=== PATIENT | female | born 1935 | race Caucasian/White ===

== ENCOUNTER 2016-10-07 19:01 | Inpatient (IN) | payer MEDICARE, OTHER ==
[~2016-10-07] VITALS: Ht 157.5 cm; Wt 75.0 kg
--- NOTE | 2016-10-07 19:32 | PD ---
HPI Chief Complaint: elbow pain Time Seen by Provider: 19:30 Travel History International Travel<30 days: No Contact w/Intl Traveler<30days: No History of Present Illness HPI This is an 81-year-old female who presents to the emergency department having sustained a mechanical fall while she was walking on the sidewalk. Patient landed on her right arm and hit her head. She is reporting severe pain in her right elbow, constant, worse with movement radiating into the right shoulder. She denies any numbness or weakness. She did hit her head but she doesn't remember losing consciousness. She can't really tell if she has any neck pain. She denies any chest pain or trouble breathing. She is not on any blood thinners. PFSH Past Medical History Narrative Medical partial colectomy due to colon cancer with chronic diarrhea hx thyroidectomy Social History Narrative Social History lives in [place] Tobacco Use: No Allergies-Medications (Allergen,Severity, Reaction): Coded Allergies: Tetanus Toxoid (Verified Allergy, Severe, Anaphylaxis, 10/07/16) Reported Meds & Prescriptions Reported Meds & Active Scripts Active Reported Lomotil (Diphenoxylate-Atropine) 2.5-0.025 Mg Tab 1 Tab PO Q6H PRN Review of Systems Except as stated in HPI: all other systems reviewed are Neg Physical Exam Narrative GENERAL:Well appearing, no acute distress SKIN: Focused skin assessment warm and dry. HEAD: Atraumatic. Normocephalic. EYES: Right periorbital ecchymoses, pupils are 3 mm, equal and reactive ENT: Moist mucous membranes NECK: Trachea midline. No cervical spine tenderness, distracting injury present CARDIOVASCULAR: Regular rate and rhythm. No murmur appreciated. RESPIRATORY: Clear to auscultation. Breath sounds equal bilaterally. GASTROINTESTINAL: Abdomen soft, non-tender, nondistended. MUSCULOSKELETAL: No obvious deformities. NEUROLOGICAL: Awake and alert. No obvious cranial nerve deficits. No dysarthria or aphasia. No upper or lower extremity drift. No upper extremity ataxia. Visual graham intact. PSYCHIATRIC: Appropriate mood and affect; insight and judgment normal. Data Data Last Documented VS Vital Signs Date Time Temp Pulse Resp B/P Pulse Ox O2 Delivery O2 Flow Rate FiO2 10/07/16 22:45 76 18 128/64 99 Nasal Cannula 2 10/07/16 19:33 98.9 Orders Complete Blood Count With Diff (10/07/16 19:30) Comprehensive Metabolic Panel (10/07/16 19:30) ^ Insert Iv (10/07/16 19:30) Ct Brain W/O Iv Contrast(Rout) (10/07/16 ) Ct Cerv Spine W/O Contrast (10/07/16 ) Shoulder, Limited(2vws) (10/07/16 19:56) Humerus, One View (10/07/16 ) Elbow, Limited (Ap&Lat) (10/07/16 19:56) Propofol 200 Mg/20 Ml Inj (Diprivan 200 (10/07/16 21:00) Hydromorphone Pf Inj (Dilaudid Pf Inj) (10/07/16 21:30) Elbow, Limited (Ap&Lat) (10/07/16 ) Hydromorphone Pf Inj (Dilaudid Pf Inj) (10/07/16 21:45) Chest, Single Ap (10/07/16 ) Hydromorphone Pf Inj (Dilaudid Pf Inj) (10/07/16 22:15) Electrocardiogram (10/07/16 ) Urinalysis - C+S If Indicated (10/07/16 22:33) Prothrombin Time / Inr (Pt) (10/07/16 22:33) Act Partial Throm Time (Ptt) (10/07/16 22:33) Sling Cradle Arm (10/07/16 ) Fiberglass Splint Elbow Adult (10/07/16 ) Admit Order (Ed Use Only) (10/07/16 22:59) Consult Orthopedic (10/07/16 ) Labs Laboratory Tests Test 10/07/16 10/07/16 19:50 22:45 White Blood Count 12.0 TH/MM3 Red Blood Count 4.56 MIL/MM3 Hemoglobin 14.5 GM/DL Hematocrit 42.5 % Mean Corpuscular Volume 93.2 FL Mean Corpuscular Hemoglobin 31.7 PG Mean Corpuscular Hemoglobin 34.0 % Concent Red Cell Distribution Width 13.4 % Platelet Count 195 TH/MM3 Mean Platelet Volume 8.4 FL Neutrophils (%) (Auto) 65.9 % Lymphocytes (%) (Auto) 22.8 % Monocytes (%) (Auto) 9.1 % Eosinophils (%) (Auto) 1.6 % Basophils (%) (Auto) 0.6 % Neutrophils # (Auto) 7.9 TH/MM3 Lymphocytes # (Auto) 2.7 TH/MM3 Monocytes # (Auto) 1.1 TH/MM3 Eosinophils # (Auto) 0.2 TH/MM3 Basophils # (Auto) 0.1 TH/MM3 CBC Comment AUTO DIFF Differential Comment AUTO DIFF CONFIRMED Platelet Estimate NORMAL Platelet Morphology Comment NORMAL Red Cell Morphology Comment NORMAL Sodium Level 141 MEQ/L Potassium Level 3.5 MEQ/L Chloride Level 109 MEQ/L Carbon Dioxide Level 24.3 MEQ/L Anion Gap 8 MEQ/L Blood Urea Nitrogen 10 MG/DL Creatinine 0.54 MG/DL Estimat Glomerular Filtration 108 ML/MIN Rate Random Glucose 83 MG/DL Calcium Level 8.3 MG/DL Total Bilirubin 0.3 MG/DL Aspartate Amino Transf 20 U/L (AST/SGOT) Alanine Aminotransferase 17 U/L (ALT/SGPT) Alkaline Phosphatase 93 U/L Total Protein 6.4 GM/DL Albumin 3.5 GM/DL Prothrombin Time 10.4 SEC Prothromb Time International 0.9 RATIO Ratio Activated Partial 25.9 SEC Thromboplast Time MDM Medical Decision Making Medical Screen Exam Complete: Yes Emergency Medical Condition: Yes Interpretation(s) Afebrile, no tachycardia, hypertensive Leukocytosis Electrolytes are reassuring Last 24 hours Impressions Shoulder X-Ray 10/07/16 1956 Signed Impressions: Service Date/Time: Friday, October 07, 2016 20:13 - CONCLUSION: No acute disease. Arun Pham MD Head CT 10/07/16 0000 Signed Impressions: Service Date/Time: Friday, October 07, 2016 20:29 - CONCLUSION: No definite acute abnormality is seen. There is low density in the left parietal white matter most likely from small vessel ischemic change. Significant mass effect is not seen. Arun Pham MD Elbow x-ray: Fracture of the proximal ulna and displacement of the radial head Differential Diagnosis Ulnar fracture, radial head fracture, radial head dislocation, humerus fracture , intracranial hemorrhage, cervical spine fracture Narrative Course This is an 81-year-old female who presents to the emergency department having had a mechanical fall injuring her right elbow. Patient has a fracture of the shaft of the ulna with an associated radial head dislocation. A conscious sedation was performed and the arm was supinated and traction was applied. The radial head appears to be unstable. I spoke to Dr. Arroyo who requested the elbow be splinted and he will evaluate the patient are morning. She has a normal neurovascular exam. Labs are obtained which were reassuring. I don't appreciate any other injuries. Patient will be admitted for surgical management. Procedures Procedure Narrative After the risks and benefits were discussed the following procedure was performed: MODERATE SEDATION: The patient was placed on a media monitor and pulse oximetry. An ambu bag and suction was immediately available at bedside. The patient was monitored by the nurse. Oxygen saturation, heart rate and blood pressure were monitored. Procedural sedation was acheived using 70 mg of propofol . The patient was observed until awake and alert. Procedural Sedation time in attendance was 20 minutes. Elbow dislocation reduction: Right arm was supinated and traction was applied. I could feel the radial head subluxing in and out during the reduction. Post reduction films demonstrate better alignment of the ulnar fracture fragment with persistent dislocation of the radial head. Patient had a strong radial pulse following procedure. She was splinted and will have operative management tomorrow. Physician Communication Physician Communication Discussed with Dr. Arroyo and Dr. Simms Diagnosis Primary Impression: Elbow fracture, right Qualified Code: S42.401A - Elbow fracture, right, closed, initial encounter Admitting Information Admitting Physician Requests: Admit Pauline Mosher MD Oct 07, 2016 19:32
[2016-10-07 19:33] VITALS: BP 174/100; PULSE 71; RESP 18; TEMP 98.9; O2SAT 97
[2016-10-07] MEDS ORDERED: LOMO2.5T PO (19:40)
[2016-10-07 20:11] LABS: AUTOMATED NEUTROPHIL # 7.9 TH/MM3 (1.8-7.7); BASOPHIL # 0.1 TH/MM3 (0-0.2); BASOPHIL % 0.6 % (0.0-2.0); EOSINOPHIL # 0.2 TH/MM3 (0-0.4); EOSINOPHIL % 1.6 % (0.0-4.0); HEMATOCRIT 42.5 % (35.0-46.0); LYMPH % 22.8 % (9.0-44.0); LYMPHOCYTE # 2.7 TH/MM3 (1.0-4.8); MEAN CELL VOLUME 93.2 FL (80.0-100.0); MEAN CORPUSCULAR HEMOGLOBIN 31.7 PG (27.0-34.0); MONO % 9.1 % (0.0-8.0); NEUT % 65.9 % (16.0-70.0); PLATELET COUNT 195 TH/MM3 (150-450); RED BLOOD COUNT 4.56 MIL/MM3 (4.00-5.30); RED CELL DISTRIBUTION WIDTH 13.4 % (11.6-17.2)
[2016-10-07 20:14] LABS: HEMO FLAGS AUTO DIFF
[2016-10-07 20:33] LABS: ALKALINE PHOSPHATASE 93 U/L (45-117); ALT (GPT) 17 U/L (10-53); ANION GAP 8 MEQ/L (5-15); AST (GOT) 20 U/L (15-37); BICARBONATE 24.3 MEQ/L (21.0-32.0); BLOOD UREA NITROGEN 10 MG/DL (7-18); CHLORIDE 109 MEQ/L (98-107); GLOMERULAR FILTRATION RATE 108 ML/MIN (>89); POTASSIUM 3.5 MEQ/L (3.5-5.1); SODIUM (NA) 141 MEQ/L (136-145); TOTAL BILIRUBIN ADULT 0.3 MG/DL (0.2-1.0)
[2016-10-07] MEDS ORDERED: PROPOFOL 200 MG/20 ML AMP IV ONE (21:00)
--- NOTE | 2016-10-07 21:13 | RADRPT ---
EXAM DATE/TIME: 10/07/2016 20:13 [facility] COMPARISON: No previous studies available for comparison. INDICATIONS : Patient fell landing on right arm today. Complains of right elbow pain radiating to shoulder. MEDICAL HISTORY : None. SURGICAL HISTORY : None. ENCOUNTER: Initial ACUITY: 1 day PAIN SCORE: 10/10 LOCATION: Right Shoulder FINDINGS: Two view examination of the right shoulder demonstrates no evidence of fracture or dislocation. The glenohumeral and acromioclavicular joints are maintained. Bony mineralization is normal. CONCLUSION: No acute disease. Arun Pham MD on October 07, 2016 at 21:11 Board Certified Radiologist. This report was verified electronically.
--- NOTE | 2016-10-07 21:15 | RADRPT ---
EXAM DATE/TIME: 10/07/2016 20:11 [facility] COMPARISON: No previous studies available for comparison. INDICATIONS : Patient fell tonight landing on right arm. Complains of right elbow pain radiating to right upper arm . MEDICAL HISTORY : None. SURGICAL HISTORY : None. ENCOUNTER: Initial ACUITY: 1 day PAIN SCORE: 10/10 LOCATION: Right humerus FINDINGS: The humerus appears intact. There is fracturing at the proximal ulna. There is posterior displacemen t of the radial head. The glenohumeral joint appears grossly normally aligned. CONCLUSION: Fracturing of the proximal ulna with displacement of the ulnar shaft and the radius. Arun Pham MD on October 07, 2016 at 21:10 Board Certified Radiologist. This report was verified electronically.
--- NOTE | 2016-10-07 21:16 | RADRPT ---
EXAM DATE/TIME: 10/07/2016 20:29 [facility] COMPARISON: No previous studies available for comparison. INDICATIONS : Fall with head trauma. RADIATION DOSE: 34.24 CTDIvol (mGy) MEDICAL HISTORY : None SURGICAL HISTORY : None. ENCOUNTER: Initial ACUITY: 1 day PAIN SCALE: 6/10 LOCATION: cranial TECHNIQUE: Multiple contiguous axial images were obtained of the head. Using automated exposure control and adj ustment of the mA and/or kV according to patient size, radiation dose was kept as low as reasonably a chievable to obtain optimal diagnostic quality images. FINDINGS: CEREBRUM: The ventricles are normal for age. No evidence of midline shift, mass lesion, hemorrhage or acute in farction. No extra-axial fluid collections are seen. There is mild low density in the left parietal white matter. POSTERIOR FOSSA: The cerebellum and brainstem are intact. The 4th ventricle is midline. The cerebellopontine angle i s unremarkable. EXTRACRANIAL: The visualized portion of the orbits is intact. SKULL: The calvaria is intact. No evidence of skull fracture. CONCLUSION: No definite acute abnormality is seen. There is low density in the left parietal white matter most li george from small vessel ischemic change. Significant mass effect is not seen. Arun Pham MD on October 07, 2016 at 21:13 Board Certified Radiologist. This report was verified electronically.
--- NOTE | 2016-10-07 21:18 | RADRPT ---
EXAM DATE/TIME: 10/07/2016 20:15 [facility] COMPARISON: No previous studies available for comparison. INDICATIONS : Patient fell tonight landing on right arm. Complains of right elbow pain. MEDICAL HISTORY : None. SURGICAL HISTORY : None. ENCOUNTER: Initial ACUITY: 1 day PAIN SCORE: 10/10 LOCATION: Right elbow FINDINGS: There is fracturing of the proximal ulna. There is also fracturing of the lateral aspe ct of the radial head. The radius and ulnar shaft are posteriorly dislocated at the elbow joint. Th e proximal ulnar fragment and olecranon retain their alignment with the elbow joint. CONCLUSION: Proximal ulnar and radial head fracture with displacement of the ulnar shaft and radi us. Arun Pham MD on October 07, 2016 at 21:12 Board Certified Radiologist. This report was verified electronically.
--- NOTE | 2016-10-07 21:23 | RADRPT ---
EXAM DATE/TIME: 10/07/2016 20:29 [facility] COMPARISON: No previous studies available for comparison. INDICATIONS : Fall with head trauma and neck pain. RADIATION DOSE: 20.77 CTDIvol (mGy) MEDICAL HISTORY : None SURGICAL HISTORY : None. ENCOUNTER: Initial ACUITY: 1 day PAIN SCALE: 5/10 LOCATION: Cranial TECHNIQUE: Volumetric scanning of the cervical spine was performed. Multiplanar reconstructions i n the sagittal, coronal and oblique axial planes were performed. Using automated exposure control a nd adjustment of the mA and/or kV according to patient size, radiation dose was kept as low as reason ably achievable to obtain optimal diagnostic quality images. FINDINGS: The craniovertebral junction is intact. The C1-C2 articulation is aligned. There is de generative change at the anterior C1-C2 articulation. The cervical vertebral bodies are normal in he ight. They are grossly normally aligned. C2-C3: The bony spinal canal is normal in size. No evidence of disc bulge or herniation. The neura l foramina are bilaterally patent. C3-C4: The bony spinal canal is normal in size. No evidence of disc bulge or herniation. The neura l foramina are bilaterally patent. C4-C5: There is mild disc space narrowing. A significant impression on the thecal sac is not seen. There is moderate left facet hypertrophy. There is mild uncovertebral hypertrophy. The neural forami na are grossly intact. C5-C6: There is mild decreased height at the disc space. A significant impression on the thecal sac is not seen. The neural foramina are grossly normal. There is mild uncovertebral hypertrophy. There is mild left facet hypertrophy. The right facet joints are grossly normal. C6-C7: Disc space is grossly intact. There is no spinal stenosis. The neural foramina are normal. T here is mild facet hypertrophy. C7-T1: The bony spinal canal is normal in size. No evidence of disc bulge or herniation. The neura l foramina are bilaterally patent. CONCLUSION: Mild degenerative change as described above. An acute bony abnormality is not seen. Arun Pham MD on October 07, 2016 at 21:14 Board Certified Radiologist. This report was verified electronically.
[2016-10-07] MEDS ORDERED: HYDROmorphone HCL PF 1 MG/ML VIAL IV PUSH ONE ×3 (21:30→22:15)
[2016-10-07 21:33] VITALS: O2SAT 100
[2016-10-07 21:51] LABS: PLATELET ESTIMATE SMEAR NORMAL (NORMAL); PLATELET MORPHOLOGY NORMAL (NORMAL); SCAN/DIFF AUTO DIFF CONFIRMED
[2016-10-07 22:21] VITALS: BP 133/62; PULSE 79; RESP 18; O2SAT 98
--- NOTE | 2016-10-07 22:34 | RADRPT ---
EXAM DATE/TIME: 10/07/2016 20:15 [facility] COMPARISON: No previous studies available for comparison. INDICATIONS : Evaluate for pneumothorax, pneumonia, or communicable diseases. MEDICAL HISTORY : None. SURGICAL HISTORY : None. ENCOUNTER: Initial ACUITY: 1 day PAIN SCORE: 0/10 LOCATION: Chest FINDINGS: Heart size is normal. The lungs are free of focal consolidation. There is some minimal prominence of the interstitium. No effusion is seen. There do appear to be rounded densities seen over the lower chest bilaterally likely related to breast implants. CONCLUSION: Minimal prominence of the interstitium. This may represent some underlying chronic i nterstitial process. A focal consolidation is not seen. Arun Pham MD on October 07, 2016 at 22:30 Board Certified Radiologist. This report was verified electronically.
[2016-10-07 22:45] VITALS: BP 128/64; PULSE 76; RESP 18; O2SAT 99
--- NOTE | 2016-10-07 22:46 | RADRPT ---
EXAM DATE/TIME: 10/07/2016 21:43 [facility] COMPARISON: ELBOW RIGHT LIMITED (AP & LAT), October 07, 2016, 20:15. INDICATIONS : Post reduction right elbow MEDICAL HISTORY : None. SURGICAL HISTORY : None. ENCOUNTER: Initial ACUITY: 1 day PAIN SCORE: 10/10 LOCATION: Right elbow FINDINGS: Again noted are the proximal ulnar fracture and the posterior lateral dislocation of the radial head. The alignment of the ulnar fracture is improved but there is still dislocation of the radial head. CONCLUSION: Fracturing of the proximal ulna and displacement of the radial head. Arun Pham MD on October 07, 2016 at 22:41 Board Certified Radiologist. This report was verified electronically.
[2016-10-07 23:10] LABS: APTT (PATIENT) 25.9 SEC (24.3-30.1); INTERNATIONAL NORMALIZED RATIO 0.9 RATIO; PROTHROMBIN TIME - PATIENT 10.4 SEC (9.8-11.6)
[2016-10-07] MEDS ORDERED: ONDANSETRON HCL 4 MG/2 ML VIAL IVP PRN (23:15)
[2016-10-07] MEDS ORDERED: SODIUM CHLORIDE 0.9% FLUSH 10 ML FLUSH IV FLUSH PRN (23:15)
[2016-10-07] MEDS ORDERED: ACETAMINOPHEN 325 MG TAB PO PRN (23:15)
[2016-10-07] MEDS ORDERED: BISACODYL 10 MG SUPP RECTAL PRN (23:15)
[2016-10-07] MEDS ORDERED: DIPHENOXYLATE/ATROPINE 2.5 MG/0.025 MG TAB PO PRN (23:15)
--- NOTE | 2016-10-07 23:16 | HHI.HP ---
[facility] Primary Care Physician Non-Staff Admission Diagnosis fracture ulnar shaft Diagnoses: (1) Fall Diagnosis: Principal (2) Elbow fracture, right Diagnosis: Principal (3) Leukocytosis Diagnosis: Principal Travel History International Travel<30 Days: No Contact w/Intl Traveler <30 Da: No Traveled to Known Affected Are: No History of Present Illness This is an 81-year-old female with PMH Colon CA s/p Colectomy, Chronic Diarrhea and Hypothyroidism who was brought to the ER by EMS for complaints of right elbow pain following mechanical fall. Per pt she was walking down the street when she tripped on a tree root, no LOC or head trauma. On arrival, BP 133/62, HR 79, O2 sat 98% on 2L NC, Afebrile. WBC 12.0. Chemistry essentially unremarkable. INR 0.9. CT Head negative for acute findings. CXR with mild chronic interstitial process. CT C-Spine with no acute findings. Wrist X-ray negative. Humerus X-ray fracture of the proximal ulna with displacement of the ulnar shaft and radius. Shoulder X-ray negative. S/p attempted reduction by ER physician and splint placement. Dr. Arroyo consulted by ER physician, will evaluate for likely surgical intervention in am. Review of Systems Except as stated in HPI: all other systems reviewed are Neg ROS: 14 point review of systems otherwise negative. Past Family Social History Past Medical History PMH: Colon CA s/p Colectomy, Chronic Diarrhea and Hypothyroidism Past Surgical History PAST SURGICAL HISTORY: Colectomy, Thyroidectomy Allergies: Coded Allergies: Tetanus Toxoid (Verified Allergy, Severe, Anaphylaxis, 10/07/16) Family History PAST FAMILY HISTORY: Reviewed. No h/o DM or CAD Social History PAST SOCIAL HISTORY: Negative for alcohol, tobacco or drugs. Patient visiting from [place]. Physical Exam Vital Signs Vital Signs Date Time Temp Pulse Resp B/P Pulse Ox O2 Delivery O2 Flow Rate FiO2 10/07/16 23:05 18 10/07/16 22:45 76 18 128/64 99 Nasal Cannula 2 10/07/16 22:21 79 18 133/62 98 Nasal Cannula 2 10/07/16 22:20 18 10/07/16 22:20 18 10/07/16 19:36 97 Room Air 10/07/16 19:33 98.9 71 18 174/100 97 Physical Exam PE: GENERAL: Elderly white female in no acute distress. HEENT: PERRLA, EOMI. No scleral icterus or conjunctival pallor. No lid lag or facial droop. CARDIOVASCULAR: Regular rate and rhythm. No obvious murmurs to auscultation. No chest tenderness to palpation. RESPIRATORY: No obvious rhonchi or wheezing. Clear to auscultation. Breath sounds equal bilaterally. GASTROINTESTINAL: Abdomen soft, non-tender, nondistended. BS normal. MUSCULOSKELETAL: Decreased ROM of RUE due to injury, RUE in splint. Pulses intact. NEUROLOGICAL: Awake, alert and oriented x4. No focal neurologic deficits. Moving both upper and lower extremities spontaneously. Laboratory Laboratory Tests Test 10/07/16 10/07/16 19:50 22:45 White Blood Count 12.0 Red Blood Count 4.56 Hemoglobin 14.5 Hematocrit 42.5 Mean Corpuscular Volume 93.2 Mean Corpuscular Hemoglobin 31.7 Mean Corpuscular Hemoglobin 34.0 Concent Red Cell Distribution Width 13.4 Platelet Count 195 Mean Platelet Volume 8.4 Neutrophils (%) (Auto) 65.9 Lymphocytes (%) (Auto) 22.8 Monocytes (%) (Auto) 9.1 Eosinophils (%) (Auto) 1.6 Basophils (%) (Auto) 0.6 Neutrophils # (Auto) 7.9 Lymphocytes # (Auto) 2.7 Monocytes # (Auto) 1.1 Eosinophils # (Auto) 0.2 Basophils # (Auto) 0.1 CBC Comment AUTO DIFF Differential Comment AUTO DIFF CONFIRMED Platelet Estimate NORMAL Platelet Morphology Comment NORMAL Red Cell Morphology Comment NORMAL Sodium Level 141 Potassium Level 3.5 Chloride Level 109 Carbon Dioxide Level 24.3 Anion Gap 8 Blood Urea Nitrogen 10 Creatinine 0.54 Estimat Glomerular Filtration 108 Rate Random Glucose 83 Calcium Level 8.3 Total Bilirubin 0.3 Aspartate Amino Transf 20 (AST/SGOT) Alanine Aminotransferase 17 (ALT/SGPT) Alkaline Phosphatase 93 Total Protein 6.4 Albumin 3.5 Prothrombin Time 10.4 Prothromb Time International 0.9 Ratio Activated Partial 25.9 Thromboplast Time Result Diagram: 10/07/16 1950 10/07/161949 Assessment and Plan Problem List: (1) Fall ICD Code: W19.XXXA Status: Acute (2) Elbow fracture, right ICD Code: S42.401A Status: Acute (3) Leukocytosis ICD Code: D72.829 Status: Acute Assessment and Plan A/P: 1. Fall: S/p mechanical trip and fall on planted tree root while walking on sidewalk, no LOC or head trauma. CT Head/C-Spine w/ no acute findings, images reviewed by me. 2. Right Elbow Fx/Dislocation: Humerus X-ray with fracture of proximal ulna with displacement of ulna shaft and radius, images reviewed by me. S/p reduction w/ splint in ER, Dr. Arroyo consulted by ER physician, plan is for surgical intervention. NPO, IVF, analgesics/antiemetics as needed. Pre-op labs essentially unremarkable. 3. Leukocytosis: WBC 12.0. Afebrile, no signs of infection, likely related to acute fall w/ injury. Recheck labs in am. 4. DVT Prophylaxis: Anticoagulation post op per Ortho 5. Social work for DC planning as needed. 6. Case discussed at length with ER physician. Physician Certification 2 Midnight Certification Type: Admission for Inpatient Services Order for Inpatient Services The services are ordered in accordance with Medicare regulations or non- Medicare payer requirements, as applicable. In the case of services not specified as inpatient-only, they are appropriately provided as inpatient services in accordance with the 2-midnight benchmark. Estimated LOS (days): 2 days is the estimated time the patient will need to remain in the hospital, assuming treatment plan goals are met and no additional complications. Post-Hospital Plan: Not yet determined Problem Qualifiers (1) Elbow fracture, right: Qualified Code: S42.401A - Elbow fracture, right, closed, initial encounter Adele Sampson MD Oct 07, 2016 23:16
[2016-10-07] MEDS: SODIUM CHLOR 0.9% 1000 ML INJ 1,000 ML IV SCH (23:51)
[2016-10-08] VITALS (8 sets, daily range): BP systolic 116–156; BP diastolic 61–79; PULSE 63–90; RESP 16–22; TEMP 96.4–99.5; O2SAT 94–98
[2016-10-08] MEDS: HYDROmorphone HCL PF 1 MG/ML VIAL IV PRN ×3 (00:31→06:13)
--- NOTE | 2016-10-08 00:31 | RADRPT ---
EXAM DATE/TIME: 10/07/2016 23:44 [facility] COMPARISON: No previous studies available for comparison. INDICATIONS : Right arm pain post fall, known acute right elbow fracture. MEDICAL HISTORY : None. SURGICAL HISTORY : None. ENCOUNTER: Subsequent ACUITY: 1 day PAIN SCORE: 10/10 LOCATION: Right arm FINDINGS: Two view examination of the right wrist demonstrates no soft tissue swelling, dislocation, or fractur e. The joint spaces are maintained. Bony mineralization is normal. CONCLUSION: No acute disease. Arun Pham MD on October 08, 2016 at 0:29 Board Certified Radiologist. This report was verified electronically.
[2016-10-08] MEDS ORDERED: SODIUM CHLORID 0.9% 500 ML IV PRN (02:15)
[2016-10-08] MEDS ORDERED: POVIDONE IODINE 5% (ANTISEPSIS KIT) 4 APPLICATIONS EACH NARE PRN (02:15)
[2016-10-08] MEDS ORDERED: CHLORHEXIDINE GLUCONATE 2 % 1 PACK (2 CLOTHS) TOPICAL PRN (02:15)
[2016-10-08] MEDS ORDERED: LACTATED RINGER'S 1000 ML IV PRN (02:15)
[2016-10-08] MEDS ORDERED: INSULIN HUMAN REGULAR 1,000 UNITS/10 ML VIAL SQ PRN (02:15)
[2016-10-08 05:18] LABS: AUTOMATED NEUTROPHIL # 8.3 TH/MM3 (1.8-7.7); BASOPHIL % 0.1 % (0.0-2.0); EOSINOPHIL % 0.1 % (0.0-4.0); HEMATOCRIT 38.6 % (35.0-46.0); HEMO FLAGS DIFF FINAL; LYMPH % 10.1 % (9.0-44.0); MEAN CELL VOLUME 92.6 FL (80.0-100.0); MEAN CORPUSCULAR HEMOGLOBIN 31.2 PG (27.0-34.0); MEAN CORPUSCULAR HGB CONC 33.7 % (32.0-36.0); MONO % 8.6 % (0.0-8.0); NEUT % 81.1 % (16.0-70.0); PLATELET COUNT 219 TH/MM3 (150-450); RED BLOOD COUNT 4.17 MIL/MM3 (4.00-5.30); WHITE BLOOD COUNT 10.2 TH/MM3 (4.0-11.0)
[2016-10-08 05:41] LABS: ALT (GPT) 17 U/L (10-53); ANION GAP 7 MEQ/L (5-15); AST (GOT) 16 U/L (15-37); BICARBONATE 25.5 MEQ/L (21.0-32.0); BLOOD UREA NITROGEN 10 MG/DL (7-18); CHLORIDE 109 MEQ/L (98-107); GLOMERULAR FILTRATION RATE 115 ML/MIN (>89); POTASSIUM 4.3 MEQ/L (3.5-5.1); SODIUM (NA) 141 MEQ/L (136-145)
[2016-10-08 05:43] LABS: ALKALINE PHOSPHATASE 71 U/L (45-117); TOTAL BILIRUBIN ADULT 0.6 MG/DL (0.2-1.0)
--- NOTE | 2016-10-08 08:29 | MB ---
cc: JOANN JAIN M.D. DATE OF CONSULTATION: 10/08/2016 REASON FOR CONSULTATION: Right elbow fracture dislocation. HISTORY Patient 81-year-old female who fell and was taken to the [facility] emergency room by EMS with some severe complaints of right elbow pain with a mechanical fall, she tried to brace herself with the right arm. She denies loss of consciousness or head trauma, the pain is severe and constant. The emergency room physician tried several attempts had a reduction of her elbow unsuccessfully she has been admitted to the medical service. Orthopedic surgery was consulted for further evaluation management of the injury condition. She was placed in the splint. She did have a CT scan of her head that showed no acute findings. CT scan of the neck. No acute findings. A wrist x-ray was negative. PAST MEDICAL HISTORY: Past medical history is positive for colon cancer, status post colectomy, hypothyroid. PAST SURGICAL HISTORY: Colectomy Thyroidectomy. ALLERGIES TETANUS TOXOID FAMILY HISTORY: Reviewed noncontributory. SOCIAL HISTORY Negative tobacco, alcohol or drugs. She is visiting from [place] REVIEW OF SYSTEMS The review of systems negative for 12 systems other than HPI. PHYSICAL EXAMINATION: VITAL SIGNS Temperature 98.9, pulse 71, respirations 18, blood pressures 130/62. IN GENERAL: The patient elderly-appearing female lying in bed. She is in moderate distress. She has intermittent spasms of her right elbow. She is awake, alert. HEAD, EYES, EARS, NOSE, AND THROAT: Normocephalic, atraumatic. Pupils round, extraocular muscles intact. NECK: The neck is supple. LUNGS: Clear. HEART: Regular rate and rhythm. ABDOMEN: The abdomen is soft and nontender. EXTREMITIES: The right upper extremity was placed in a splint with her elbow held in approximately 45 degrees of flexion. A past motion of the right elbow, severe pain. The patient is able to slightly flex, extend digits but when she does so she has significant spasms of the right arm and severe pain and she has brisk capillary refill of her digits. Sensation intact distally. X-ray of the right elbow AP lateral, bleeding, oblique views shows evidence of a Monteggia fracture-dislocation with fracture of the proximal ulna and dislocation of the radial head. She has osteoporosis of bone. LABORATORY FINDINGS: The white blood cell count 12, hemoglobin 14, hematocrit 42, platelets 195, glucose is 83. IMPRESSION 81-year-old female status post fall right Monteggia fracture dislocation of her elbow. PLAN The diagnosis and treatment options treatment and nonoperative her surgery. Surgical consents of open reduction, internal fixation. The risks of surgery was discussed which includes but limited to bleeding, infection damage to nerves, blood vessels hardware, blood clots. The patient had questions which have been answered. She does wish to proceed with surgery. Written consent has been obtained surgical site has been marked. MD LESTER Ortiz/emmanuel /7:34 AM /8:21 AM
[2016-10-08] MEDS ORDERED: GENTAMICIN SULFATE 80 MG/2 ML VIAL ONE (08:56)
[2016-10-08] MEDS ORDERED: ceFAZolin INJ 1,000 MG VIAL ONE (08:56)
[2016-10-08] MEDS ORDERED: VANCOMYCIN HCL 1000 MG VIAL ONE (08:57)
[2016-10-08] MEDS ORDERED: SODIUM CHLORIDE 0.9% FLUSH 10 ML FLUSH IV FLUSH SCH (09:00)
[2016-10-08] MEDS: SODIUM CHLOR 0.9% 1000 ML INJ 1,000 ML IV SCH (09:07)
[2016-10-08] MEDS ORDERED: ACETAMINOPHEN 1000 MG/100 ML VIAL IV ONE (09:23)
--- NOTE | 2016-10-08 09:48 | HHI.PR ---
Subjective Remarks Patient seen post op right ORIF ulnar fracture. Pain is controlled. No nausea or vomiting. Objective Vitals Vital Signs Date Time Temp Pulse Resp B/P Pulse Ox O2 Delivery O2 Flow Rate FiO2 10/08/16 04:29 97.5 88 17 126/70 96 10/08/16 01:00 18 10/08/16 00:50 97.1 80 17 116/65 94 10/07/16 23:05 18 10/07/16 22:45 76 18 128/64 99 Nasal Cannula 2 10/07/16 22:21 79 18 133/62 98 Nasal Cannula 2 10/07/16 22:20 18 10/07/16 22:20 18 10/07/16 21:33 100 Nasal Cannula 3.00 10/07/16 21:33 100 3.00 10/07/16 19:36 97 Room Air 10/07/16 19:33 98.9 71 18 174/100 97 Result Diagram: 10/08/16 0446 10/08/16 0446 Imaging Last Impressions Elbow X-Ray 10/08/16 0000 Signed Impressions: Service Date/Time: Saturday, October 08, 2016 10:53 - CONCLUSION: Status post ORIF of olecranon fracture with good anatomic alignment.. Keila Gould MD Shoulder X-Ray 10/07/16 195 Signed Impressions: Service Date/Time: Friday, October 07, 2016 20:13 - CONCLUSION: No acute disease. Arun Pham MD Wrist X-Ray 10/07/16 0000 Signed Impressions: Service Date/Time: Friday, October 07, 2016 23:44 - CONCLUSION: No acute disease. Arun Pham MD Humerus X-Ray 10/07/16 0000 Signed Impressions: Service Date/Time: Friday, October 07, 2016 20:11 - CONCLUSION: Fracturing of the proximal ulna with displacement of the ulnar shaft and the radius. Arun Pham MD Head CT 10/07/16 0000 Signed Impressions: Service Date/Time: Friday, October 07, 2016 20:29 - CONCLUSION: No definite acute abnormality is seen. There is low density in the left parietal white matter most likely from small vessel ischemic change. Significant mass effect is not seen. Arun Pham MD Chest X-Ray 4/7/17 0000 Signed Impressions: Service Date/Time: Friday, October 07, 2016 20:15 - CONCLUSION: Minimal prominence of the interstitium. This may represent some underlying chronic interstitial process. A focal consolidation is not seen. Arun Pham MD Cervical Spine CT 10/07/16 0000 Signed Impressions: Service Date/Time: Friday, October 07, 2016 20:29 - CONCLUSION: Mild degenerative change as described above. An acute bony abnormality is not seen. Arun Pham MD Objective Remarks GENERAL: This is a well-nourished, well-developed patient, in no apparent distress. CARDIOVASCULAR: Normal rate and regular rhythm without murmurs, gallops, or rubs. RESPIRATORY: Good respiratory efforts. Breath sounds equal and clear to auscultation bilaterally. GASTROINTESTINAL: Abdomen soft, non-tender, non-distended. Normal active bowel sounds MUSCULOSKELETAL: Extremities without cyanosis, or edema. Left upper extremity is wrapped with postsurgical dressing. Neurovascularly intact distally at the fingers. NEURO: Alert & Oriented x4 to person, place, time, situation. Moves all ext x4 PSYCH: Appropriate mood and affect. A/P Problem List: (1) Fall ICD Code: W19.XXXA Status: Acute (2) Elbow fracture, right ICD Code: S42.401A Status: Acute (3) Leukocytosis ICD Code: D72.829 Status: Acute Assessment and Plan 81 Y/O female with Fall: S/p mechanical trip and fall on planted tree root while walking on sidewalk, no LOC or head trauma. CT Head/C-Spine w/ no acute findings. Right Elbow Fx/Dislocation: Humerus X-ray with fracture of proximal ulna with displacement of ulna shaft and radius. S/p reduction w/ splint in ER. Patient is status post ORIF by orthopedics. Routine postop care per orthopedics. Leukocytosis: WBC 12.0. Afebrile, no signs of infection, likely related to acute fall w/ injury. Repeat labs normal. DVT Prophylaxis: Anticoagulation when cleared by Ortho Problem Qualifiers (1) Elbow fracture, right: Qualified Code: S42.401A - Elbow fracture, right, closed, initial encounter Jacklyn Abad MD Oct 08, 2016 09:48
[2016-10-08] MEDS ORDERED: HYDR-3288 PO (11:14)
[2016-10-08] MEDS ORDERED: ONDANSETRON HCL 4 MG/2 ML VIAL IVP PRN (11:15)
[2016-10-08] MEDS ORDERED: SODIUM CHLORIDE 0.9% FLUSH 10 ML FLUSH IV FLUSH PRN (11:15)
[2016-10-08] MEDS ORDERED: ACETAMINOPHEN/HYDROcodone 325 MG/7.5 MG TAB PO PRN (11:15)
[2016-10-08] MEDS ORDERED: MORPHINE SULFATE 4 MG/ML INJ IV PUSH PRN (11:15)
[2016-10-08] MEDS ORDERED: diphenhydrAMINE HCL 25 MG CAP PO PRN (11:15)
[2016-10-08] MEDS ORDERED: NALOXONE HCL 0.4 MG/ML AMP IV PRN (11:15)
[2016-10-08] MEDS ORDERED: Post-op Orders (for Pharmacy) MISC XX ONE (11:27)
[2016-10-08] MEDS ORDERED: DO NOT ADM ANY ANTICOAGULANT DRUGS PRN (11:27)
--- NOTE | 2016-10-08 11:33 | RADRPT ---
EXAM DATE/TIME: 10/08/2016 10:53 [place] COMPARISON: ELBOW RIGHT LIMITED (AP & LAT), October 07, 2016, 21:43. INDICATIONS : ORIF Rt elbow. MEDICAL HISTORY : None. SURGICAL HISTORY : None. ENCOUNTER: Subsequent ACUITY: 1 day PAIN SCORE: Non-responsive. LOCATION: Right Elbow FINDINGS: Multiple fluoroscopic views of the postsurgical right elbow demonstrate surgical plate and screws tra versing the proximal olecranon fracture with good anatomic alignment. CONCLUSION: Status post ORIF of olecranon fracture with good anatomic alignment.. Keila Gould MD on October 08, 2016 at 11:30 Board Certified Radiologist. This report was verified electronically.
[2016-10-08] MEDS ORDERED: *morphine SULFATE 8 MG/ML PERIprocedure ONLY ONE (11:40)
[2016-10-08] MEDS ORDERED: fentaNYL CITRATE 250 MCG/5 ML AMP ONE (11:44)
[2016-10-08] MEDS: DEXT 5%-NACL 0.45% 1000 ML INJ 1,000 ML IV SCH ×2 (11:51→22:00)
[2016-10-08] MEDS ORDERED: PHENYLEPH/NS 1000 MCG/10 ML SYR IV ONE (12:00)
[2016-10-08] MEDS ORDERED: NEOSTIGMINE 3 MG/3 ML SYR IV ONE (12:00)
[2016-10-08] MEDS ORDERED: ONDANSETRON HCL 4 MG/2 ML VIAL IV PUSH ONE (12:00)
[2016-10-08] MEDS ORDERED: PROPOFOL 200 MG/20 ML AMP IV ONE (12:00)
[2016-10-08] MEDS ORDERED: *ONDANSETRON 4 MG VIAL PERIprocedural Use ONLY ONE (12:02)
--- NOTE | 2016-10-08 14:26 | EKG ---
Date Performed: 10/07/2016 Time Performed: 22:51:06 PTAGE: 81 years EKG: Sinus rhythm WITH MARKED SINUS ARRHYTHMIA BORDERLINE ECG NO PREVIOUS TRACING DOCTOR: Ludin Sherman Interpretating Date/Time 10/08/2016 14:24:07
[2016-10-08] MEDS: ACETAMINOPHEN/HYDROcodone 325 MG/7.5 MG TAB PO PRN ×2 (15:06→20:53)
[2016-10-08] MEDS: SODIUM CHLORIDE 0.9% FLUSH 10 ML FLUSH IV FLUSH SCH (20:16)
[2016-10-08] MEDS: DOCUSATE SODIUM 50 MG/SENNA 8.6 MG TAB PO SCH (20:17)
[2016-10-09] VITALS: BP 110/53; PULSE 87; RESP 20; TEMP 98; O2SAT 95
[2016-10-09 04:00] VITALS: BP 117/62; PULSE 82; RESP 20; TEMP 97.1; O2SAT 96
[2016-10-09] MEDS: ACETAMINOPHEN/HYDROcodone 325 MG/7.5 MG TAB PO PRN ×2 (05:09→10:12)
[2016-10-09 07:10] VITALS: BP 133/70; PULSE 85; RESP 18; TEMP 98.9; O2SAT 94
[2016-10-09] MEDS: DEXT 5%-NACL 0.45% 1000 ML INJ 1,000 ML IV SCH (08:00)
--- NOTE | 2016-10-09 08:16 | PD.ORT.PN ---
Subjective Post Op Day #: 1 Subjective Remarks pain much improved since sx. Objective Vitals Vital Signs Date Time Temp Pulse Resp B/P Pulse Ox O2 Delivery O2 Flow Rate FiO2 10/09/16 04:00 97.1 82 20 117/62 96 10/09/16 00:00 98.0 87 20 110/53 95 10/08/16 20:00 99.5 85 22 117/61 94 10/08/16 17:56 96 Nasal Cannula 2.00 10/08/16 16:00 99.2 77 18 134/74 94 10/08/16 12:13 72 15 145/69 96 Nasal Cannula 2 10/08/16 12:00 96.4 63 16 141/72 98 10/08/16 12:00 70 12 137/78 95 Nasal Cannula 2 10/08/16 11:45 78 14 163/86 97 Nasal Cannula 2 10/08/16 11:32 98.4 98 15 169/99 93 Nasal Cannula 2 10/08/16 09:30 89 150/79 94 10/08/16 09:15 93 152/86 97 10/08/16 09:15 89 10/08/16 09:00 98.3 89 16 151/84 95 10/08/16 09:00 Nasal Cannula 2 I/O 10/08/16 10/08/16 10/08/16 10/09/16 10/09/16 10/09/16 07:00 15:00 23:00 07:00 15:00 23:00 Intake Total 1180 ml 780 ml 240 ml Output Total 400 ml Balance 780 ml 780 ml 240 ml Intake Oral 480 ml 780 ml 240 ml Other 700 ml Output Urine Total 350 ml Estimated Blood Loss 50 ml # Voids 1 2 1 4 # Bowel Movements 0 0 0 Result Diagram: 10/08/16 0446 10/08/16 0446 Objective Remarks in bed, nad dressing and splint c/d/i nvi sensation intact cap refill Assessment & Plan Ortho Post Op Day #: 1 Problem List: Assessment and Plan s/p ORIF R ulna shaft fx/Monteggia fx NWB RUE maintain splint ok to ambulate as tolerated ROM of fingers patient visiting from [place]. Provide copy of med recs and xrays. cleared for d/c by ortho f/up with ortho in [place] 1 week Roscoe Reynolds Oct 09, 2016 08:15
[2016-10-09 08:49] VITALS: O2SAT 99
[2016-10-09] MEDS: SODIUM CHLORIDE 0.9% FLUSH 10 ML FLUSH IV FLUSH SCH (08:51)
[2016-10-09] MEDS: DOCUSATE SODIUM 50 MG/SENNA 8.6 MG TAB PO SCH (08:51)
[2016-10-09] MEDS ORDERED: MULTIVITAMINS/MINERALS THERAPEUTIC TAB PO SCH (09:00)
--- NOTE | 2016-10-09 10:32 | HHI.DCPOC ---
Discharge Care Plan Diagnosis: (1) Fall (2) Elbow fracture, right Goals to Promote Your Health * To prevent worsening of your condition and complications * To maintain your health at the optimal level Directions to Meet Your Goals Take your medications as prescribed Follow your dietary instruction Follow activity as directed Keep your appointments as scheduled Take your immunizations and boosters as scheduled If your symptoms worsen call your PCP, if no PCP go to Urgent Care Center or Emergency Room Smoking is Dangerous to Your Health. Avoid second hand smoke Call the 24-hour hour crisis hotline for domestic abuse at Jacklyn Abad MD Oct 09, 2016 10:32
--- NOTE | 2016-10-09 10:33 | HHI.DS ---
Discharge Summary Admission Date Oct 07, 2016 at 23:01 Discharge Date: Oct 09, 2016 Admitting Diagnosis fracture ulnar shaft (1) Fall ICD Code: W19.XXXA (2) Elbow fracture, right ICD Code: S42.401A (3) Leukocytosis ICD Code: D72.829 Procedures ORIF of right ulna fracture Brief History - From Admission This is an 81-year-old female with PMH Colon CA s/p Colectomy, Chronic Diarrhea and Hypothyroidism who was brought to the ER by EMS for complaints of right elbow pain following mechanical fall. Per pt she was walking down the street when she tripped on a tree root, no LOC or head trauma. On arrival, BP 133/62, HR 79, O2 sat 98% on 2L NC, Afebrile. WBC 12.0. Chemistry essentially unremarkable. INR 0.9. CT Head negative for acute findings. CXR with mild chronic interstitial process. CT C-Spine with no acute findings. Wrist X-ray negative. Humerus X-ray fracture of the proximal ulna with displacement of the ulnar shaft and radius. Shoulder X-ray negative. S/p attempted reduction by ER physician and splint placement. Dr. Arroyo consulted by ER physician, will evaluate for likely surgical intervention in am. CBC/BMP: 10/08/16 0446 10/08/16 0446 Significant Findings Laboratory Tests Test 10/07/16 10/08/16 19:50 04:46 White Blood Count 12.0 TH/MM3 (4.0-11.0) Monocytes (%) (Auto) 9.1 % (0.0-8.0) 8.6 % (0.0-8.0) Neutrophils # (Auto) 7.9 TH/MM3 8.3 TH/MM3 (1.8-7.7) (1.8-7.7) Monocytes # (Auto) 1.1 TH/MM3 (0-0.9) Chloride Level 109 MEQ/L 109 MEQ/L (98-107) (98-107) Calcium Level 8.3 MG/DL 8.1 MG/DL (8.5-10.1) (8.5-10.1) Neutrophils (%) (Auto) 81.1 % (16.0-70.0) Random Glucose 116 MG/DL (74-106) Total Protein 5.7 GM/DL (6.4-8.2) Albumin 3.2 GM/DL (3.4-5.0) Imaging Last Impressions Elbow X-Ray 10/08/16 0000 Signed Impressions: Service Date/Time: Saturday, October 08, 2016 10:53 - CONCLUSION: Status post ORIF of olecranon fracture with good anatomic alignment.. Keila Gould MD Shoulder X-Ray 10/07/161955 Signed Impressions: Service Date/Time: Friday, October 07, 2016 20:13 - CONCLUSION: No acute disease. Arun Pham MD Wrist X-Ray 10/07/16 Signed Impressions: Service Date/Time: Friday, October 07, 2016 23:44 - CONCLUSION: No acute disease. Arun Pham MD Humerus X-Ray 10/07/16 Signed Impressions: Service Date/Time: Friday, October 07, 2016 20:11 - CONCLUSION: Fracturing of the proximal ulna with displacement of the ulnar shaft and the radius. Arun Pham MD Head CT 10/07/16 Signed Impressions: Service Date/Time: Friday, October 07, 2016 20:29 - CONCLUSION: No definite acute abnormality is seen. There is low density in the left parietal white matter most likely from small vessel ischemic change. Significant mass effect is not seen. Arun Pham MD Chest X-Ray 10/07/16 Signed Impressions: Service Date/Time: Friday, October 07, 2016 20:15 - CONCLUSION: Minimal prominence of the interstitium. This may represent some underlying chronic interstitial process. A focal consolidation is not seen. Arun Pham MD Cervical Spine CT 10/07/16 Signed Impressions: Service Date/Time: Friday, October 07, 2016 20:29 - CONCLUSION: Mild degenerative change as described above. An acute bony abnormality is not seen. Arun Pham MD PE at Discharge GENERAL: This is a well-nourished, well-developed patient, in no apparent distress. CARDIOVASCULAR: Normal rate and regular rhythm without murmurs, gallops, or rubs. RESPIRATORY: Good respiratory efforts. Breath sounds equal and clear to auscultation bilaterally. GASTROINTESTINAL: Abdomen soft, non-tender, non-distended. Normal active bowel sounds MUSCULOSKELETAL: Extremities without cyanosis, or edema. Left upper extremity is wrapped with postsurgical dressing. Neurovascularly intact distally at the fingers. NEURO: Alert & Oriented x4 to person, place, time, situation. Moves all ext x4 PSYCH: Appropriate mood and affect. Pt update on day of discharge Patient reports she is feeling well and ready to go home. She is ambulating well with PT. Pain is controlled. Hospital Course 81 Y/O female admitted after a mechanical fall. The patient sustained a right elbow fracture involving the proximal ulna with displacement of ulna shaft and radius. This was reduced and splinted in the emergency room. The patient underwent ORIF by orthopedic surgery. She did well postoperatively. She is discharged home to follow-up with orthopedics in [place]. She have a leukocytosis but there were no signs of infection. Leukocytosis resolved with repeat labs. Pt Condition on Discharge: Stable Discharge Disposition: Discharge Home Discharge Time: <= 30 minutes Discharge Instructions DIET: Follow Instructions for: Heart Healthy Diet Activities you can perform: See Additionl Instruction Other Activity Instructions: Per PT and Orthopedics instructions Follow up Referrals: Orthopedics New Medications: Hydrocodone-Acetaminophen ([place]) 7.5-325 mg Tab 1-2 TAB PO Q6H PRN PAIN #60 Ref 0 TAB Continued Medications: Diphenoxylate-Atropine (Lomot[place]) 2.5-0.025 Mg Tab 1 TAB PO Q6H PRN DIARRHEA Ref 0 TAB Jacklyn Abad MD Oct 09, 2016 10:32
--- NOTE | 2016-10-11 09:08 | MP ---
cc: JOANN JAIN M.D. DATE OF SURGERY 10/08/2016 PREOPERATIVE DIAGNOSIS Right elbow olecranon fracture with dislocation radial head. POSTOPERATIVE DIAGNOSES Right elbow olecranon fracture with dislocation radial head. PROCEDURE Open reduction internal fixation right olecranon fracture with open reduction internal fixation and open reduction radial head dislocation. SURGEON Dr. Joann Jain CHARGE NURSE SARAH Mora ANESTHESIA General ESTIMATED BLOOD LOSS 100 cc TOURNIQUET TIME 0 minutes COMPLICATIONS None IMPLANTS USED Synthes JUSTIFICATION This patient is an 81-year-old female who fell sustaining a right elbow fracture dislocation. She was taken to [facility] emergency room. Orthopedic services counseled the patient as to the risks, benefits and alternatives to the above-named proposed surgical procedure. She did wish to proceed with surgery. PROCEDURE IN DETAIL A written consent was obtained. The patient was identified by name, taken to the operating room, placed in the supine position and general anesthesia was administered, as well as one gram of IV Ancef and one gram of IV vancomycin. The patient was carefully turned to the left lateral decubitus position, a lateral arm roll was placed. All bony prominences and pressure points were well-padded. The patient's neck was carefully monitored and kept neutral. The right upper extremity prepped draped using isopropyl alcohol, Hibiclens solution and DuraPrep solution. After a time-out was performed, a longitudinal incision was made over the posterior aspect of the right elbow extending down the ulnar crest of the forearm. The fascial layer was incised and the soft tissue elevated off the region of the ulna. An open reduction of the ulna fracture was performed and also a joker elevator was also used to assist with open reduction of the radial head dislocation. Once both fractures and dislocations were reduced and held in place preliminarily with fracture reduction clamps, a Synthes plate was applied to the posterior aspect of the electron and extending down the ulna. A combination of both locking and nonlocking screws were used for fixation. Fluoroscopic imaging confirmed hardware placement and fracture reduction. The surgical wounds were thoroughly irrigated with sterile saline solution. The fascia layer was closed with #1 Vicryl suture. Subcutaneous tissues closed in layers with 2-0 Vicryl sutures. Skin was closed with Dermabond. A sterile dressing applied. The patient tolerated the procedure well. No intraoperative complications noted. Damien Reynolds, Physician Sports Trainer Certified, was present during the entire procedure to include patient positioning and the procedure itself. The medical necessity of a physician optical assistant was indicated in this case due to the complexity of the procedure. He assisted with appropriate manipulation of the arm and also assisted with both achieving and maintaining fracture reduction along with implantation of the internal fixation device. MD LESTER Ortiz/ULYSSES /11:07 AM /8:59 AM
== END 2016-10-09 11:13 | disposition home or self-care (01) | DRG 512 ==
LOC: EDBD → NEPC 19:01 → NEDA 23:01 → N06A 23:59
PROVIDERS: ADMIT Family Medicine; ATTEND Family Medicine
PROC: 0PSKXZZ Reposition Right Ulna, External Approach (ICD-10-PCS; 2016-10-07)
PROC: 0PSH0ZZ Reposition Right Radius, Open Approach (ICD-10-PCS; 2016-10-08)
PROC: 0PSK04Z Reposition Right Ulna with Internal Fixation Device, Open Approach (ICD-10-PCS; principal; 2016-10-08 09:35)
DX: S52.031A Displaced fracture of olecranon process with intraarticular extension of right ulna, initial encounter for closed fracture (principal); E89.0 Postprocedural hypothyroidism; W01.0XXA Fall on same level from slipping, tripping and stumbling without subsequent striking against object, initial encounter; Y92.480 Sidewalk as the place of occurrence of the external cause
CPT/HCPCS: 24600; 70450; 71010; 72125; 73030; 73070; 73100; 76000; 80053; 85025; 85610; 85730; 93005; 96374; 96375; 96376; 99152; 99153; C1713; J0131; J0690; J1170; J1580; J2270; J2370; J2405; J2710; J3010; J3370; J7030